=== PATIENT | male | born 1990 | race Caucasian/White ===

== ENCOUNTER 2016-10-19 01:49 | Emergency (ER) | payer BC ==
--- NOTE | 2016-10-19 02:28 | ERNOTE ---
Upper Extremity HPI - General Extremities Pain Location: shoulder: left Time Seen by Provider: 10/19/16 02:18 Source: patient Exam Limitations: no limitations - Immun/Allergies/Home Medications Immunizations: IMMUNIZATION HX Immunizations Up to Date Yes History of Influenza Vaccine No Hx Pneumococcal Vaccination No Allergies/Adverse Reactions: Allergies Allergy/AdvReac Type Severity Reaction Status Date / Time Sulfa (Sulfonamide AdvReac Mild Verified 10/19/16 01:57 Antibiotics) [Sulfa(Sulfonamide Antibiotics)] Home Medications: HOME MEDICATIONS Nabumetone 750 mg PO BID #20 tablet 10/19/16 [Last Taken Unknown] - History of Present Illness Narrative: Pt has chronic shoulder pain and it has been hurting more lately. States he uses tylenol or ibuprofen but they haven't been working lately. Severity: moderate Method of Injury: Reports: no apparent injury - at this time Review of Systems - Review of Systems Constitutional: Present: no symptoms reported EYE: Present: no symptoms reported ENT: Present: no symptoms reported Musculoskeletal: Present: See HPI Skin: Present: no symptoms reported Neurological: Present: no symptoms reported - Patient's Past Medical History Patient History - Medical: No pertinent hx Patient History - Cardiac/Respiratory: No pertinent hx Patient History - Cancer: No Hx of Cancer Patient History - Surgical Procedures: No surgical history Patient History - Other: None - Social History Living Situations: alone Abuse History: No History of abuse Psych History: No pertinent hx Smoking Status: Current every day smoker Patient requests Smoking Cessation Consult: No Initiate information on Smoking Cessation: No Alcohol Use: rarely Drug Use: none - Immunizations Immunizations Up to Date: Yes Hx Pneumococcal Vaccination: No History of Influenza Vaccine: No Physical Exam - Physical Exam General Appearance: Present: wd/wn, alert, no apparent distress Eye Exam: Normal inspection: bilateral, PERRL: bilateral Neck: Present: normal inspection, nontender Respiratory: Present: no respiratory distress, no accessory muscle use Back Exam: Present: normal inspection, normal range of motion, no vertebral tenderness Extremity Exam: Present: normal except - - left shoulder decreased ROM. ROM stopped at 90 degree by pain in flex and abduct., other - Left shoulder tender posterior and less so anterior. No AC joint or subacromial tend. Neurological Exam: Present: alert, oriented, normal mood/affect Lymphatic Exam: Present: no adenopathy ED Progress - Vital Signs Vital Signs: Vital Signs 10/19/16 01:53 Temperature 36 C L Pulse Rate 81 Respiratory 18 Rate Blood Pressure 109/74 O2 Sat by Pulse 98 Oximetry - Progress/Reassessment Chief Complaint: Shoulder Injury/Pain Departure Clinical Impression: Shoulder joint pain Qualifiers: Laterality: left Qualified Code(s): M25.512 - Pain in left shoulder - Departure Disposition: Home Follow Up Needed Condition: Good Instructions: Shoulder Pain, [id number] Additional Instructions: See orthopedics if your shoulder is not improving Referrals: Frantz Ferreira, PAC [[facility]] - Prescriptions: Nabumetone 750 mg PO BID #20 tablet
[2016-10-19] MEDS ORDERED: KETOROLAC TROMETHAMINE 60 MG/2 ML VIAL IM ONE ×2 (02:44→02:46)
[2016-10-19 03:03] VITALS: BP 110/76
== END 2016-10-19 03:01 | disposition home or self-care (01) ==
LOC: ER 01:49
DX: M25.512 Pain in left shoulder (principal)

== ENCOUNTER 2016-10-26 18:48 | Emergency (ER) | payer BC ==
[2016-10-26 19:50] LABS: Urine Bilirubin Negative (NEGATIVE); Urine Ketone Negative (NEGATIVE); Urine Nitrite Negative (NEGATIVE); Urine Protein Negative (NEGATIVE); Urine Specific Gravity <=1.005 SP.GR. (1.005-1.030); Urine Urobilinogen Normal (NORMAL)
[2016-10-26 20:05] LABS: Urine Appearance Clear; Urine Blood 5 /ul (NEGATIVE); Urine Color Yellow; Urine RBC 0-5 /hpf (0-5); Urine WBC 0-5 /hpf (0-5)
[2016-10-26 20:06] LABS: Urine Bacteria 1+
[2016-10-26] MEDS ORDERED: IBUPROFEN 600 MG TABLET PO ONE (20:11)
--- NOTE | 2016-10-26 20:14 | ERNOTE ---
Back Pain ER HPI Date of Service: 12/07/16 Presenting Symptoms: injury/pain to back Time Seen by Provider: 10/26/16 19:27 Source: patient, RN notes reviewed Exam Limitations: no limitations Immunizations: IMMUNIZATION HX Immunizations Up to Date Yes History of Influenza Vaccine Yes Hx Pneumococcal Vaccination No Allergies/Adverse Reactions: Allergies Sulfa (Sulfonamide Antibiotics) [Sulfa(Sulfonamide Antibiotics)] Adverse Reaction (Mild, Verified 10/26/16 19:05) Home Medications: HOME MEDICATIONS Nabumetone 750 mg PO BID #20 tablet 10/19/16 [Last Taken Unknown] Cyclobenzaprine HCl [Flexeril] 10 mg PO TID PRN #30 tab 10/26/16 [Last Taken Unknown] HYDROcodone/ACETAMINOPHEN [Vicodin 5-300 mg Tablet] 1 each PO PRN PRN 10/26/16 [ Last Taken Unknown] Ibuprofen [Motrin] 600 mg PO Q6H PRN #40 tab 10/26/16 [Last Taken Unknown] traMADol HCL [Ultram] 50 mg PO 10/26/16 [Last Taken Unknown] Narrative: 26 y/o male ambulatory to the ED for low back pain that began 2 days ago without incident. He has taken Tylenol, Tramadol and Vicodin without improvement. He has no prior history of back problems. Date (Duration): 10/24/16 Timing: Reports: constant Quality/Severity: Reports: severe, aching, dullness Location of pain: Reports: no radiation Activities at Onset: Reports: none Recent Injury?: Reports: no Possible Precipitating Factor: Reports: turning/bending Modifying Factors - (Improves): Reports: nothing Modifying Factors - (Worsens): Reports: movement flexion, cough/deep breaths Associated Symptoms: Denies: fever/chills, sweating, constipation/incontinence, nausea/vomiting, problems urinating, difficulty walking, numbess/weakness in legs Prior Treament: Denies: similar symptoms before Review of Systems - Review of Systems Constitutional: Absent: recent illness, fever, chills EYE: Present: no symptoms reported ENT: Present: no symptoms reported Respiratory: Absent: shortness of breath, cough Cardiology: Absent: chest pain, syncope Gastrointestinal/Abdominal: Absent: nausea, vomiting, diarrhea, constipation, abdominal pain Genitourinary: Absent: frequency, dysuria, hematuria, decreased urinary output Musculoskeletal: Present: back pain. Absent: neck pain, joint pain Skin: Absent: rash, lesions Neurological: Absent: weakness, numbness, tingling Endocrine: Present: no symptoms reported Hematologic/Lymphatic: Absent: easy bruising, easy bleeding Psych: Absent: anxiety, depressed - Patient's Past Medical History Patient History - Medical: No pertinent hx, Other Patient History - Cardiac/Respiratory: No pertinent hx Patient History - Cancer: No Hx of Cancer Patient History - Surgical Procedures: No surgical history, Other Patient History - Other: None - Social History Living Situations: parents Abuse History: No History of abuse Psych History: No pertinent hx Smoking Status: Current every day smoker Cigarettes Packs Per Day: 0.5 Have you smoked in the past 12 months: Yes Do you dip or chew tobacco: No Alcohol Use: rarely Drug Use: none - Immunizations Immunizations Up to Date: Yes Hx Pneumococcal Vaccination: No History of Influenza Vaccine: Yes Physical Exam - Physical Exam General Appearance: Present: alert, no apparent distress, thin, other - Disheveled appearance Head Exam: Present: normal inspection, no evidence of injury Neck: Present: normal inspection, nontender, supple, full range of motion Respiratory: Present: no respiratory distress, normal breath sounds, no accessory muscle use, lungs clear Cardiovascular/Chest: Present: regular rate, rhythm, no murmur, normal peripheral pulses Gastrointestinal/Abdominal: Present: nontender, nondistended, soft Back Exam: Present: no CVA tenderness, no vertebral tenderness, decreased range of motion, other - mild left lumbar region paraspinal muscle tenderness with palpation Extremity Exam: Present: normal inspection, non-tender, normal range of motion, no edema, other - normal strength against resistance in lower extremities Neurological Exam: Present: alert, oriented, normal mood/affect, no motor/ sensory deficits DTR: N=norm/NB=norm/brisk/A=abs/DD=dull/dimin/HC=hyperactive: Knee (R): Normal/ Brisk, Knee (L): Normal/Brisk Skin Exam: Present: normal color, warm/dry ED Progress - Vital Signs Patient's Vital Signs:: I have reviewed the patient's vital signs. Vital Signs: Vital Signs 10/26/16 19:00 Temperature 36.4 C L Pulse Rate 79 Respiratory 14 Rate Blood Pressure 112/58 O2 Sat by Pulse 92 Oximetry - Progress/Reassessment Chief Complaint: Back Pain Progress:: Unchanged Departure Clinical Impression: Back pain Qualifiers: Back pain location: low back pain Chronicity: acute Back pain laterality: left Sciatica presence: without sciatica Qualified Code(s): M54.5 - Low back pain - Departure Disposition: Home Follow Up Needed Condition: Stable Instructions: Back Pain, Adult, [id number] Prescriptions: Cyclobenzaprine HCl [Flexeril] 10 mg PO TID PRN #30 tab PRN Reason: MUSCLE SPASMS Ibuprofen [Motrin] 600 mg PO Q6H PRN #40 tab PRN Reason: Pain
[2016-10-26] MEDS ORDERED: IBUPROFEN 600 MG TABLET ONE (20:23)
[2016-10-26 20:35] VITALS: BP 119/63
== END 2016-10-26 20:27 | disposition home or self-care (01) ==
LOC: ER 18:48
DX: M54.5 Low back pain (principal); F17.210 Nicotine dependence, cigarettes, uncomplicated

== ENCOUNTER 2017-02-02 19:09 | Emergency (ER) | payer BC ==
[2017-02-02] MEDS ORDERED: KETOROLAC TROMETHAMINE 60 MG/2 ML VIAL IM ONE ×2 (19:42→19:50)
--- NOTE | 2017-02-02 19:50 | ERNOTE ---
Upper Extremity HPI - Narrative Date of Service: 02/02/17 - General Extremities Pain Location: shoulder: left Time Seen by Provider: 02/02/17 19:22 Source: patient Exam Limitations: no limitations - Immun/Allergies/Home Medications Immunizations: IMMUNIZATION HX Immunizations Up to Date Yes History of Influenza Vaccine No Hx Pneumococcal Vaccination No Allergies/Adverse Reactions: Allergies Allergy/AdvReac Type Severity Reaction Status Date / Time Sulfa (Sulfonamide AdvReac Mild Verified 10/26/16 19:05 Antibiotics) [Sulfa(Sulfonamide Antibiotics)] Home Medications: HOME MEDICATIONS Ibuprofen [Motrin] 600 mg PO Q6H PRN #40 tab 10/26/16 [Last Taken Unknown] Nabumetone 750 mg PO BID #60 tab 02/02/17 [Last Taken Unknown] - History of Present Illness Narrative: Pt. comes in with c/o worsening chronic shoulder pain. Pt. states that he had a busy day at work on and his pain became worse after that day. Pt. denies any new injury or change in pain but states that Ibuprofen is not helping. Pt. states that he has seen Frantz Ferreira for this in he past without resolution as pt. states that he needs surgery per Frantz. Review of Systems - Review of Systems Constitutional: Present: no symptoms reported. Absent: weakness, fatigue, malaise EYE: Present: no symptoms reported ENT: Present: no symptoms reported Respiratory: Present: no symptoms reported. Absent: shortness of breath, cough , wheezing Cardiology: Present: no symptoms reported. Absent: chest pain, palpitations, edema Gastrointestinal/Abdominal: Present: no symptoms reported. Absent: nausea, vomiting, diarrhea Genitourinary: Present: no symptoms reported Musculoskeletal: Present: joint pain - L shoulder pain. Absent: back pain Skin: Present: no symptoms reported. Absent: rash, change in hair/nails Neurological: Present: no symptoms reported. Absent: headache, dizziness/light- headedness, numbness, tingling All Other Systems: All systems neg except as marked - Patient's Past Medical History Patient History - Medical: Other - chronic shoulder pain Patient History - Cardiac/Respiratory: No pertinent hx Patient History - Cancer: No Hx of Cancer Patient History - Surgical Procedures: Other Patient History - Other: None - Social History Living Situations: significant other Abuse History: No History of abuse Psych History: No pertinent hx Smoking Status: Current every day smoker Have you smoked in the past 12 months: Yes Do you dip or chew tobacco: Yes Alcohol Use: rarely Drug Use: none - Immunizations Immunizations Up to Date: Yes Hx Pneumococcal Vaccination: No History of Influenza Vaccine: No Physical Exam - Physical Exam General Appearance: Present: wd/wn, alert, no apparent distress Head Exam: Present: normal inspection, no evidence of injury Eye Exam: Normal inspection: bilateral Neck: Present: normal inspection, nontender. Absent: lymphadenopathy (R), lymphadenopathy (L) Respiratory: Present: no respiratory distress, normal breath sounds, no accessory muscle use, chest nontender, lungs clear Cardiovascular/Chest: Present: regular rate, rhythm, no murmur, normal peripheral pulses Back Exam: Present: normal inspection Extremity Exam: Present: no edema, decreased range of motion - abduction with pain, other - tenderness of bicep tendon attachment and AC joint Neurological Exam: Present: alert, oriented, normal mood/affect, no motor/ sensory deficits Skin Exam: Present: normal color, warm/dry. Absent: pallor, skin rash ED Progress - Vital Signs Patient's Vital Signs:: I have reviewed the patient's vital signs. Vital Signs: Vital Signs 02/02/17 19:13 Temperature 37.1 C Pulse Rate 86 Respiratory 16 Rate Blood Pressure 113/58 O2 Sat by Pulse 98 Oximetry - Progress/Reassessment Chief Complaint: Shoulder Injury/Pain Departure Clinical Impression: Shoulder joint pain Qualifiers: Laterality: left Qualified Code(s): M25.512 - Pain in left shoulder - Departure Disposition: Home self-care Condition: Good Instructions: Shoulder Pain, [id number] Additional Instructions: Please follow up with Frantz Ferreira as planned. Referrals: Deirdre Arce MD [Primary Care Provider] - Prescriptions: Nabumetone 750 mg PO BID #60 tab
[2017-02-02 20:00] VITALS: BP 116/64
[2017-02-02] MEDS ORDERED: LIDOCAINE 1 PATCH ADH..PATCH TP SCH (20:00)
== END 2017-02-02 20:15 | disposition home or self-care (01) ==
LOC: ER 19:09
DX: M25.512 Pain in left shoulder (principal)

== ENCOUNTER 2017-03-05 18:27 | Emergency (ER) | payer BC ==
[2017-03-05 19:14] VITALS: BP 113/64
--- NOTE | 2017-03-05 19:19 | ERNOTE ---
Upper Extremity HPI - Narrative Date of Service: 03/05/17 - General Extremities Pain Location: shoulder: left Time Seen by Provider: 03/05/17 18:48 Source: patient Exam Limitations: no limitations - Immun/Allergies/Home Medications Immunizations: IMMUNIZATION HX Immunizations Up to Date Yes History of Influenza Vaccine Yes Hx Pneumococcal Vaccination Yes Allergies/Adverse Reactions: Allergies Allergy/AdvReac Type Severity Reaction Status Date / Time Sulfa (Sulfonamide AdvReac Mild Verified 10/26/16 19:05 Antibiotics) [Sulfa(Sulfonamide Antibiotics)] Home Medications: HOME MEDICATIONS Ibuprofen [Motrin] 600 mg PO Q6H PRN #40 tab 10/26/16 [Last Taken Unknown] Nabumetone 750 mg PO BID #60 tab 03/05/17 [Last Taken Unknown] - History of Present Illness Narrative: Pt. comes in with c/o L shoulder pain for four weeks. Pt. has a hx of chronic pain to the shoulder and states that he is supposed to follow up with orthopedics but states that he has been procrastinating doing this and that he has a new job starting in 10 days and will be able to go then because he will have better insurance. Pt. states that movement worsens the pain and his medication that was prescribed last time he was here improves it but he is out of that. Review of Systems - Review of Systems Constitutional: Present: no symptoms reported. Absent: recent illness, fever, chills, weakness, fatigue, malaise EYE: Present: no symptoms reported ENT: Present: no symptoms reported Respiratory: Present: no symptoms reported. Absent: shortness of breath, cough , wheezing Cardiology: Present: no symptoms reported. Absent: chest pain, palpitations, edema Gastrointestinal/Abdominal: Present: no symptoms reported. Absent: nausea, vomiting, diarrhea Genitourinary: Present: no symptoms reported Musculoskeletal: Present: joint pain - L shoulder. Absent: back pain Skin: Present: no symptoms reported Neurological: Present: no symptoms reported. Absent: headache, dizziness/light- headedness, numbness, tingling All Other Systems: All systems neg except as marked - Patient's Past Medical History Patient History - Medical: Other Patient History - Cardiac/Respiratory: No pertinent hx Patient History - Cancer: No Hx of Cancer Patient History - Surgical Procedures: Other Patient History - Other: None - Social History Living Situations: significant other Abuse History: No History of abuse Psych History: No pertinent hx Smoking Status: Light tobacco smoker Have you smoked in the past 12 months: Yes Do you dip or chew tobacco: No Patient requests Smoking Cessation Consult: No Initiate information on Smoking Cessation: No Alcohol Use: rarely Drug Use: none - Immunizations Immunizations Up to Date: Yes Hx Pneumococcal Vaccination: Yes History of Influenza Vaccine: Yes Physical Exam - Physical Exam General Appearance: Present: wd/wn, alert, no apparent distress Head Exam: Present: normal inspection, no evidence of injury Eye Exam: Normal inspection: bilateral, PERRL: bilateral, EOMI: bilateral Respiratory: Present: no respiratory distress, normal breath sounds, no accessory muscle use Cardiovascular/Chest: Present: regular rate, rhythm, no murmur, normal peripheral pulses Back Exam: Present: normal inspection Extremity Exam: Present: no edema, decreased range of motion - abduction adn rotation, other - tenderness with palpation or deltoid and pect.. Absent: bony tenderness Neurological Exam: Present: alert, oriented, normal mood/affect, no motor/ sensory deficits Skin Exam: Present: normal color, warm/dry. Absent: pallor, skin rash ED Progress - Vital Signs Patient's Vital Signs:: I have reviewed the patient's vital signs. Vital Signs: Vital Signs 03/05/17 18:40 Temperature 37.1 C Pulse Rate 74 Respiratory 15 Rate Blood Pressure 104/75 O2 Sat by Pulse 97 Oximetry - Progress/Reassessment Chief Complaint: Shoulder Injury/Pain Progress:: Unchanged Departure Clinical Impression: Shoulder joint pain Qualifiers: Laterality: left Qualified Code(s): M25.512 - Pain in left shoulder - Departure Disposition: Home self-care Condition: Good Instructions: Shoulder Pain, [id number], Shoulder Range of Motion Exercises Additional Instructions: Please follow up with primary provider in 2-3 days or Frantz Ferreira as we have discussed. Prescriptions: Nabumetone 750 mg PO BID #60 tab
== END 2017-03-05 19:13 | disposition home or self-care (01) ==
LOC: ER 18:27
DX: M25.512 Pain in left shoulder (principal); F17.200 Nicotine dependence, unspecified, uncomplicated